=== PATIENT | female | born 1960 | race Caucasian/White ===

== ENCOUNTER 2022-07-28 20:43 | Observation (INO) ==
[2022-07-28 21:20] LABS: Basophils % 0.1 %; Eosinophils # 0.3 K/mcL (0.0-0.6); Hematocrit 24.7 % (35.3-44.9); Hemoglobin 6.4 g/dL (11.5-15.4); Immature Granulocytes % 0.6 % (0-4); Lymphocytes # 1.6 K/mcL (0.6-4.6); Mean Corpuscular HGB Conc 25.9 g/dL (31.6-35.5); Mean Corpuscular Hemoglobin 17.6 pg (28.0-33.3); Mean Platelet Volume 9.5 fL (9.4-12.4); Monocytes # 0.7 K/mcL (0.0-1.3); Monocytes % 9.7 %; Neutrophils # 4.4 K/mcL (1.6-8.9); Platelet Count 203 K/mcL (140-400); Red Blood Count 3.63 M/mcL (3.82-4.97); Red Cell Distribution Width 20.2 % (11.5-14.5); Segmented Neutrophils % 62.6 %
[2022-07-28 21:41] LABS: BUN/Creatinine Ratio 21 (6-26); Blood Urea Nitrogen 18 mg/dL (8-23); Carbon Dioxide 25 mEq/L (23-29); Chloride 102 mEq/L (98-107); Glucose 100 mg/dL (70-105); Osmolality,Calculated 284 (280-300); Potassium 4.2 mEq/L (3.5-5.1); Sodium 136 mEq/L (136-145)
[2022-07-28 21:42] LABS: Troponin I < 0.03 ng/mL (< 0.04)
[2022-07-28 21:49] LABS: Anisocytosis 1+ (Not Present)
[2022-07-28 21:50] LABS: Hypochromasia Present (Not Present); Microcytosis Present (Not Present)
[2022-07-28 21:51] LABS: Poikilocytosis 1+ (Not Present)
[2022-07-28 21:52] LABS: Large Platelets Present (Not Present); Platelet Estimate Normal (Normal)
[2022-07-28 21:55] LABS: Thyroid Stimulating Hormone 1.067 mcIU/mL (0.340-5.600)
[2022-07-28 22:09] LABS: INR 1.1; Prothrombin Time 12.5 Seconds (9.4-12.1)
[2022-07-28 22:12] LABS: Activated Partial Thrombo Time 37.3 Seconds (26.0-36.0)
[2022-07-28] MEDS ORDERED: Ondansetron 4 MG/2 ML VIAL IVP PRN ×2 (22:18→23:36)
[2022-07-28] MEDS ORDERED: Naloxone 0.4 MG/ML INJ IVP PRN ×2 (22:18→23:36)
[2022-07-28] MEDS ORDERED: Acetaminophen 325 MG TABLET PO PRN ×2 (22:18→23:36)
[2022-07-28 23:09] LABS: Albumin 4.6 g/dL (3.5-5.7); Albumin/Globulin Ratio 1.6 (1.1-2.2); Bilirubin,Indirect 0.3 mg/dL (0.0-1.0); Bilirubin,Total 0.3 mg/dL (0.3-1.0); Globulin 2.9 g/dL (2.4-3.5); Total Protein 7.5 g/dL (6.4-8.9)
[2022-07-28] MEDS ORDERED: hydrOXYzine pamoate 25 MG CAPSULE PO PRN (23:43)
[2022-07-28] MEDS ORDERED: 0.9 % Sodium Chloride 250 ML ONE (23:59)
[2022-07-29 05:43] LABS: Basophils % 0.7 %; Eosinophils # 0.3 K/mcL (0.0-0.6); Eosinophils % 5.1 %; Hemoglobin 7.4 g/dL (11.5-15.4); Immature Granulocytes % 0.5 % (0-4); Lymphocytes # 1.6 K/mcL (0.6-4.6); Lymphocytes % 26.8 %; Mean Corpuscular HGB Conc 27.4 g/dL (31.6-35.5); Monocytes # 0.7 K/mcL (0.0-1.3); Monocytes % 11.9 %; Neutrophils # 3.4 K/mcL (1.6-8.9); Platelet Count 164 K/mcL (140-400); Red Cell Distribution Width 23.5 % (11.5-14.5); White Blood Count 6.1 K/mcL (4.3-11.1)
[2022-07-29 05:50] LABS: Anisocytosis 2+ (Not Present); Hypochromasia Present (Not Present)
[2022-07-29 05:51] LABS: INR 1.1; Microcytosis Present (Not Present); Prothrombin Time 12.7 Seconds (9.4-12.1)
[2022-07-29 05:52] LABS: Platelet Estimate Normal (Normal)
[2022-07-29 05:54] LABS: Poikilocytosis 1+ (Not Present)
[2022-07-29 05:58] LABS: Calcium 9.3 mg/dL (8.6-10.3); Magnesium 1.5 mg/dL (1.6-2.6); Potassium 4.1 mEq/L (3.5-5.1)
[2022-07-29 05:59] LABS: Albumin/Globulin Ratio 1.5 (1.1-2.2); Bilirubin,Indirect 0.3 mg/dL (0.0-1.0); Bilirubin,Total 0.3 mg/dL (0.3-1.0); Globulin 2.6 g/dL (2.4-3.5); Total Protein 6.6 g/dL (6.4-8.9)
[2022-07-29] MEDS: Pregabalin 75 MG CAPSULE PO SCH ×2 (08:53→20:25)
[2022-07-29] MEDS: *HR* Metformin 500 MG TABLET PO SCH (09:11)
[2022-07-29] MEDS ORDERED: Iopamidol - 370 500 ML MLS IVP ONE (14:28)
[2022-07-29] MEDS ORDERED: 0.9 % Sodium Chloride 1,000 ML IVC SCH (15:15)
[2022-07-29 21:09] VITALS: TEMP 97.8
[2022-07-30] MEDS ORDERED: *HR* Enoxaparin 40 MG/0.4 ML SYRINGE SQ SCH (06:00)
[2022-07-30 06:53] LABS: Basophils % 0.4 %; Eosinophils # 0.3 K/mcL (0.0-0.6); Eosinophils % 5.8 %; Hematocrit 27.8 % (35.3-44.9); Hemoglobin 7.7 g/dL (11.5-15.4); Immature Granulocytes % 0.7 % (0-4); Lymphocytes # 1.3 K/mcL (0.6-4.6); Lymphocytes % 24.1 %; Mean Corpuscular HGB Conc 27.7 g/dL (31.6-35.5); Mean Corpuscular Hemoglobin 20.3 pg (28.0-33.3); Mean Corpuscular Volume 73.4 fL (83.0-100.0); Mean Platelet Volume 9.2 fL (9.4-12.4); Monocytes # 0.7 K/mcL (0.0-1.3); Monocytes % 12.1 %; Platelet Count 172 K/mcL (140-400); Red Blood Count 3.79 M/mcL (3.82-4.97); Red Cell Distribution Width 22.8 % (11.5-14.5); Segmented Neutrophils % 56.9 %; White Blood Count 5.4 K/mcL (4.3-11.1)
[2022-07-30 07:16] LABS: Magnesium 1.5 mg/dL (1.6-2.6)
[2022-07-30 07:20] VITALS: BP 165/66; PULSE 73; RESP 18; O2SAT 97
[2022-07-30] MEDS: Pregabalin 75 MG CAPSULE PO SCH (07:32)
[2022-07-30] MEDS: *HR* Metformin 500 MG TABLET PO SCH (07:33)
[2022-07-30 08:51] LABS: % Iron Saturation 3 % (15-50); Iron 17 mcg/dL (50-170); Transferrin 415 mg/dL (203-362)
[2022-07-30 09:14] LABS: Anisocytosis 1+ (Not Present); Hypochromasia Present (Not Present); Platelet Estimate Normal (Normal)
[2022-07-30 09:18] LABS: Folate 7.3 ng/mL (3.0-16.0)
[2022-07-30] MEDS ORDERED: Cyanocobalamin (B-12) 1,000 MCG/ML VIAL IM ONE (10:24)
== END 2022-07-30 18:20 | disposition home or self-care (01) ==
LOC: EMEROOPIK 20:43 → INPPIK 20:43
PROVIDERS: ADMIT Pharmacist; ATTEND Pharmacist